=== PATIENT | male | born 1945 | race Caucasian/White ===

== ENCOUNTER → 2017-04-22 | Outpatient (CLI) | payer OTHER ==
[~2017-04-22] MED LIST: ASCO1CAP3 PO; ASPI1TAB48 PO; ATOR10TA88 PO; BEE1CAP PO; BEET ROOT PO; BSP/10 PO; BUSP5TAB59 PO; BUTTERBUR PO; CHOL1CHW10 PO; CIPR-255 PO; COEN1CAP17 PO; GARL400T4 PO; HYDR-5688 PO; LISI5TAB PO; METO1TAB66 PO; MISC1CAP60 PO; MULT-506 PO; NEBI10TA2 PO; OMEGCAP2 PO; OMEP40CA PO; OXYBUTYNIN PO; REDCAP2 PO; SERT1TAB71 PO; SILD100T PO; SOLI5TAB2 PO; TAMS0.4C59 PO; URX/10 PO; VITA1CAP5 PO; ZLF/100 PO; ZNTT/150 PO; [UNRECOGNIZED DRUG - OTHER] PO; cranberry PO
== END | disposition home or self-care (01) ==
LOC: C.LABSPEC 10:35
PROVIDERS: ATTEND Urology
DX: N39.0 Urinary tract infection, site not specified (principal)

== ENCOUNTER 2017-04-28 11:28 | Day surgery (SDC) | payer OTHER ==
[2017-04-23 14:23] VITALS: BMI 25.0
--- NOTE | 2017-04-23 15:01 | PAT Medication Instructions ---
Service Date Apr 23, 2017. Current Home Medication List Alfuzosin HCl (Alfuzosin HCl ER), 10 MG PO QPM Ascorbic Acid (Vitamin C), 500 MG PO BID Aspirin (Aspirin Low Dose), 81 MG PO HS Atorvastatin (Lipitor), 10 MG PO HS Bee Pollen (Bee Pollen), 550 MG PO BID Buspirone Hcl (Buspirone Hcl), 5 MG PO BID Cholecalciferol (Vitamin D3), 1,000 UNITS PO QPM PRN for PRN Coenzyme Q10 (Ubidecarenone) (Co Q 10), 200 MG PO BID Garlic-Calcium (Garlic), 3 TABS PO BID Lisinopril (Prinivil), 5 MG PO HS Misc Natural Products ([place]), 1 CAP PO BID Multivitamin (Multivitamin), 1 TAB PO QAM Nebivolol Hcl (Bystolic), 10 MG PO QAM [place]-3 Fatty Acids (Fish Oil), 1 CAP PO QPM Omeprazole (Prilosec), 40 MG PO QAM Ranitidine (Zantac), 150 MG PO HS Sertraline Hcl (Zoloft), 50 MG PO HS Sildenafil Citrate (Viagra), 100 MG PO PRN PRN for UD Tamsulosin Hcl (Flomax), 0.4 MG PO QAM Vitamin E (E400), 400 PO QPM [Beet Root], 1 TAB PO BID [[place]ries], 1 TAB PO BID [Oxybutynin], 5 MG PO DAILY [cranberry], 2 TABS PO BID Medication Instructions For Your Scheduled Surgery - Check with surgeon/copy machine operator for instructions: Aspirin (Aspirin Low Dose), 81 MG PO HS - Hold the following medications starting 04/23/17: [cranberry], 2 TABS PO BID [[place] Berries], 1 TAB PO BID Vitamin E (E400), 400 PO QPM [Beet Root], 1 TAB PO BID [place]-3 Fatty Acids (Fish Oil), 1 CAP PO QPM Misc Natural Products ([place]), 1 CAP PO BID Garlic-Calcium (Garlic), 3 TABS PO BID Coenzyme Q10 (Ubidecarenone) (Co Q 10), 200 MG PO BID Bee Pollen (Bee Pollen), 550 MG PO BID - Hold the following medications 24 hours prior to surgery: Lisinopril (Prinivil), 5 MG PO HS - Hold the following medications the morning of surgery: [Oxybutynin], 5 MG PO DAILY Tamsulosin Hcl (Flomax), 0.4 MG PO QAM Sildenafil Citrate (Viagra), 100 MG PO PRN PRN for UD Multivitamin (Multivitamin), 1 TAB PO QAM Cholecalciferol (Vitamin D3), 1,000 UNITS PO QPM PRN for PRN Ascorbic Acid (Vitamin C), 500 MG PO BID - Take the following medications the morning of surgery with a sip of water: Omeprazole (Prilosec), 40 MG PO QAM Nebivolol Hcl (Bystolic), 10 MG PO QAM Buspirone Hcl (Buspirone Hcl), 5 MG PO BID - Take the following medications as scheduled the night before surgery: Sildenafil Citrate (Viagra), 100 MG PO PRN PRN for UD (if needed) Ranitidine (Zantac), 150 MG PO HS Sertraline Hcl (Zoloft), 50 MG PO HS Buspirone Hcl (Buspirone Hcl), 5 MG PO BID Atorvastatin (Lipitor), 10 MG PO HS Ascorbic Acid (Vitamin C), 500 MG PO BID Alfuzosin HCl (Alfuzosin HCl ER), 10 MG PO QPM If you have any questions please call us at [phone] or [phone] or [phone]
--- NOTE | 2017-04-23 15:34 | DIAGNOSTIC IMAGING REPORT ---
CHEST PREADMISSION(PA/LAT) CLINICAL HISTORY: Preoperative evaluation. COMPARISON STUDY: Chest radiograph August 01, 2013. FINDINGS: Lung volumes are normal. No pneumothorax or pleural effusion is present. Pulmonary vascularity is normal. Cardiomediastinal silhouette is normal. There is no consolidation. Appearance of the chest is unchanged. Chronic deformity of the anterior right first and second ribs is incidentally noted. IMPRESSION: No acute cardiopulmonary findings. Electronically signed by: Nic Posada M.D. 04/23/2017 3:33 PM Dictated Date/Time: 04/23/2017 3:32 PM
[~2017-04-28] VITALS: Ht 177.8 cm; Wt 80.1 kg
[~2017-04-28 11:28] MED LIST changes: -BUSP5TAB59 PO; -CIPR-255 PO; +CIPROFLOXACIN / D5W 400 MG IV SCH; -HYDR-5688 PO; +LACTATED RINGER'S 1000ML 1,000 ML IV SCH; -METO1TAB66 PO; -REDCAP2 PO; -SERT1TAB71 PO; -SOLI5TAB2 PO; -TAMS0.4C59 PO
[2017-04-28 12:17] VITALS: BP 165/87; PULSE 60; TEMP 37.1; O2SAT 98; Ht 177.8 cm; Wt 80.1 kg
[2017-04-28] MEDS ORDERED: FENTANYL CITRATE INJ 50 MCG/1 ML 2 ML VIAL ONE (12:44)
[2017-04-28] MEDS ORDERED: LIDOCAINE HCL 2% 2 ML VIAL (20MG/ML) ONE (12:44)
[2017-04-28] MEDS ORDERED: PROPOFOL IV EMULSION 10 MG/ML 20 ML VIAL IV ONE (12:44)
[2017-04-28] MEDS ORDERED: ONDANSETRON INJ 2 MG/ML 2 ML VIAL ONE (12:44)
[2017-04-28] MEDS ORDERED: MIDAZOLAM HCL 1 MG/ML 2ML VIAL ONE (12:44)
[2017-04-28] MEDS ORDERED: FENTANYL CITRATE INJ 50 MCG/1 ML 2 ML VIAL IV PRN (12:45)
[2017-04-28] MEDS ORDERED: HYDROmorphone INJ 2 MG/ML SYR/VIAL IV PRN (12:45)
[2017-04-28] MEDS ORDERED: ATROPINE SULFATE 0.1 MG/ML 5ML SYR IV PRN (12:45)
[2017-04-28] MEDS ORDERED: EpHEDrine SULFATE INJ 50 MG/ML AMP IV PRN (12:45)
[2017-04-28] MEDS ORDERED: PHENYLEPHRINE 100MCG/ML 5ML SYR IV PRN (12:45)
[2017-04-28] MEDS ORDERED: ONDANSETRON INJ 2 MG/ML 2 ML VIAL IV PRN (12:45)
[2017-04-28] MEDS ORDERED: MEPERIDINE HCL 25 MG/ML CARP IV PRN (12:45)
[2017-04-28] MEDS ORDERED: NALOXONE HCL 0.4 MG/1 ML VIAL/CARP IV PRN (12:45)
[2017-04-28] MEDS ORDERED: LABETALOL HCL IV 5 MG/ML 20ML IV PRN (12:45)
[2017-04-28] MEDS ORDERED: FLUMAZENIL 0.1 MG/1 ML 10 ML VIAL IV PRN (12:45)
--- NOTE | 2017-04-28 13:06 | History & Physical Bridge Note ---
H&P Re-Evaluation Bridge Note: I have examined the patient, reviewed the History & Physical and in the interval since the performance of the History & Physical I have noted the following changes of clinical significance: No changes noted
[2017-04-28] MEDS ORDERED: HYDR-5688 PO (13:09)
[2017-04-28] MEDS ORDERED: CIPR-255 PO (13:09)
--- NOTE | 2017-04-28 13:11 | Discharge Instructions ---
Discharge Instructions Date of Service Apr 28, 2017. Admission Reason for Admission: Benign Prostatic Hyperplasia Discharge Discharge Diagnosis / Problem: BPH Discharge Goals Goal(s): Decrease discomfort, Improve function, Increase independence, Improve disease control, Prevent Disease Progression Activity Recommendations Activity Limitations: resume your previous activity Lifting Limitations: none Exercise/Sports Limitations: none May Resume Sexual Activity: when tolerated Shower/Bathe: no limitations Driving or Machine Use: resume 1 day after discharge . Instructions / Follow-Up Instructions / Follow-Up Please keep your previously scheduled follow up appointment with Dr. Silverio Discharge Diet Recommended Diet: Regular Diet Pending Studies Studies pending at discharge: no Medical Emergencies . Who to Call and When: Medical Emergencies: If at any time you feel your situation is an emergency, please call 911 immediately. . Non-Emergent Contact Non-Emergency issues call your: Urologist Call Non-Emergent contact if: you have a fever, temperature is above 101.5, your pain is not controlled, your pain is worsening . . "Provider Documentation" section prepared by Kenn Felder. . VTE Core Measure Inpt VTE Proph given/why not?: Treatment not indicated [place] Drug Monitoring Program Search Results: patient reviewed within database, no issues identified Drug Monitoring Findings: one prior prescription this summer - uncertain indication
[2017-04-28] MEDS ORDERED: SODIUM CHLORIDE 0.9% 1000ML 1,000 ML IV SCH (13:42)
--- NOTE | 2017-04-28 13:42 | [facility] Operative Report ---
Operative Report Operative Date Apr 28, 2017. Pre-Operative Diagnosis Benign prostatic hyperplasia with obstruction lower urinary tract symptoms Post-Operative Diagnosis Benign prostatic hyperplasia with obstruction lower urinary tract symptoms Procedure(s) Performed Cystoscopy, Urolift Surgeon Dr. Eyal Silverio Commercial Lender Surgeon(s) None Estimated Blood Loss 0cc Findings bilobar hypertrophy with a slightly elevated bladder neck Specimens None Drains none Anesthesia MAC Complication(s) None Disposition Recovery Room / PACU (stable) Indications BPH with voiding dysfunction Description of Procedure Patient was identified in the preoperative holding area, appropriate informed consents were reviewed and completed and the patient was transported to the operating suite. Upon arrival he received appropriate preoperative antibiotics in the form of ciprofloxacin. Adequate sedation was achieved, and he was placed in dorsal lithotomy position where he was sterilely prepped and draped in standard fashion. I began the case by passing a cystoscope with 0 lens. Inspection of the urethra revealed healthy-appearing mucosa without evidence of strictures. Prostate was inspected, and he was noted to have lateral lobe hypertrophy. Full inspection of the bladder was carried out. There were no tumors, stones, or other abnormalities. I then exchanged visual obturator for the first uro-lift device. The first suture was deployed on the right side of the prostate approximately 1 cm in from the bladder neck. A mirror image suture was then deployed on the left. A third suture was placed adjacent to the verumontanum on the right. A fourth suture was placed in a mirror image of this location on the left. There was excellent hemostasis. I reinspected the bladder and prostate and confirmed an excellent anterior channel. I attest to the content of the Intraoperative Record and any orders documented therein. Any exceptions are noted below.
[2017-04-28] MEDS ORDERED: OXYCODONE/ACETAMINOPHEN 5-325 TAB PO PRN (13:45)
[2017-04-28 13:47] VITALS: BP 142/82; PULSE 60; TEMP 36.4; O2SAT 96
[2017-04-28] MEDS: OXYCODONE/ACETAMINOPHEN 5-325 TAB PO PRN ×2 (14:10→15:29)
[2017-04-28] MEDS ORDERED: KETOROLAC TROMETHAMINE 30 MG/ML VIAL ONE (14:15)
[2017-04-28] MEDS ORDERED: KETOROLAC TROMETHAMINE 30 MG/ML VIAL IV STA (14:15)
--- NOTE | 2017-04-28 14:16 | Anesthesiology Progress Note ---
Anesthesia Post Op Note Date & Time Apr 28, 2017 at 14:16 Vital Signs Pain Intensity: 3 Vital Signs Past 12 Hours Date Time Temp Pulse Resp B/P (MAP) Pulse Ox O2 Delivery O2 Flow Rate FiO2 04/28/17 12:17 37.1 60 20 165/87 (113) 98 Room Air Notes Mental Status: alert / awake / arousable, participated in evaluation Pt Amnestic to Procedure: Yes Nausea / Vomiting: adequately controlled Pain: adequately controlled, improving with treatment Airway Patency, RR, SpO2: stable & adequate BP & HR: stable & adequate Hydration State: stable & adequate Anesthetic Complications: no major complications apparent
[2017-04-28 14:20] VITALS: BP 193/87; PULSE 55; O2SAT 100
[2017-04-28] MEDS ORDERED: HydrALAZINE HCL 20 MG/ML VIAL ONE (14:44)
[2017-04-28] MEDS ORDERED: NURSING VERBAL MED ORDER ONE (14:45)
[2017-04-28 14:55] VITALS: BP 189/97; PULSE 51; TEMP 36.4; O2SAT 100
[2017-04-28 15:50] VITALS: BP 170/83; PULSE 62; TEMP 36.5; O2SAT 99
[2017-04-28 16:20] VITALS: BP 156/89
== END 2017-04-28 16:40 | disposition home or self-care (01) ==
LOC: C.ACU 11:28
PROVIDERS: ATTEND Urology
DX: N40.1 Benign prostatic hyperplasia with lower urinary tract symptoms (principal); N13.8 Other obstructive and reflux uropathy; N32.89 Other specified disorders of bladder; N28.1 Cyst of kidney, acquired; R35.1 Nocturia; I10 Essential (primary) hypertension; N52.9 Male erectile dysfunction, unspecified

== ENCOUNTER → 2017-05-04 | Outpatient (CLI) | payer OTHER ==
[~2017-05-04] MED LIST changes: +CIPR-255 PO; -CIPROFLOXACIN / D5W 400 MG IV SCH; +HYDR-5688 PO; -LACTATED RINGER'S 1000ML 1,000 ML IV SCH; -OXYBUTYNIN PO
== END | disposition home or self-care (01) ==
LOC: C.LABSPEC 17:28
PROVIDERS: ATTEND Nurse Practitioner Adult Health
DX: R35.0 Frequency of micturition (principal); R39.15 Urgency of urination

== ENCOUNTER 2019-05-09 07:11 | Observation (INO) ==
--- NOTE | 2019-05-02 10:13 | PAT Medication Instructions ---
Medication Instructions Date of Service May 02, 2019 Home Medications Beet Root 1 dose PO BID Cranberry 1 dose PO BID Garlic 1 dose PO BID Prostate Health Supplement 2 dose PO DAILY Turmeric 1 dose PO BID ascorbic acid (vitamin C) [Vitamin C] 500 mg PO BID atorvastatin 10 mg PO Q2D buspirone 10 mg PO BID butterbur root extract 75 mg PO DAILY coenzyme Q10 [CoQ-10] 300 mg PO DAILY hawthorn 500 mg PO BID lactobacillus combination no.4 [Probiotic] 3,000 mmu cells PO DAILY lisinopril 5 mg PO UD Multivitamin 50 Plus] 1 tab PO DAILY nebivolol [Bystolic] 5 mg PO QAM omega 0-nbr-ctj-fish oil [Fish Oil] 1 cap PO DAILY omeprazole 40 mg PO QAM ranitidine HCl 150 mg PO HS sertraline 100 mg PO HS vitamin E 400 unit PO DAILY STOP taking 2 weeks before surgery (or as soon as possible if surgery is within 2 weeks) Beet Root 1 dose PO BID Cranberry 1 dose PO BID Garlic 1 dose PO BID Prostate Health Supplement 2 dose PO DAILY Turmeric 1 dose PO BID butterbur root extract 75 mg PO DAILY coenzyme Q10 [CoQ-10] 300 mg PO DAILY hawthorn 500 mg PO BID omega 3-jwh-omc-fish oil [Fish Oil] 1 cap PO DAILY vitamin E 400 unit PO DAILY DO NOT take the morning of surgery ascorbic acid (vitamin C) [Vitamin C] 500 mg PO BID lisinopril 5 mg PO UD Multivitamin 50 Plus] 1 tab PO DAILY Take morning of surgery With a small sip of water, OTHERWISE NOTHING TO EAT OR DRINK AFTER MIDNIGHT: Beet Root 1 dose PO BID Cranberry 1 dose PO BID Garlic 1 dose PO BID Prostate Health Supplement 2 dose PO DAILY Turmeric 1 dose PO BID ascorbic acid (vitamin C) [Vitamin C] 500 mg PO BID atorvastatin 10 mg PO Q2D buspirone 10 mg PO BID nebivolol [Bystolic] 5 mg PO QAM omeprazole 40 mg PO QAM Take evening before surgery ascorbic acid (vitamin C) [Vitamin C] 500 mg PO BID buspirone 10 mg PO BID ranitidine HCl 150 mg PO HS sertraline 100 mg PO HS Other Notes If you have any questions please call us at [phone] or [phone] or [phone] or [phone]
--- NOTE | 2019-05-02 15:37 | Anesthesiology Consultation ---
Date of Service May 02, 2019 Assessment & Plan (1) Encounter for pre-operative examination: Cardiology: 02/22/19: Hx frequent PVC's (s/p PVC ablation 2014) and resolved nonischemic cardiomyopathy. "Stable from a CV standpoint." Continued on same regimen. F/U 1 year recommended. Chart Review Chart Review: Pending: Refer to Additional Notes / Consult section (pending preop testing (labs, EKG)) and Patient seen in Pre Admission Testing Teaching & Discussion Pre-Anesthesia Teaching/Discussion Notes: Instructed NPO after midnight before surgery,except medications with 15 cc of water. Medication instructions provided according to the PAT guidelines. History Surgery Operation Date: 05/09/19 07:15 Proposed Procedures p Transurethral Resection Prostate - Kenn Silverio MD s and Cystoscopy Laser Lithotripsy - Kenn Silverio MD Height/Weight Height: 5 ft 10 in Weight: 82.2 kg Allergies Allergy/AdvReac Type Severity Reaction Status Date / Time peach Allergy Unknown LIP Verified 05/02/19 15:37 SWELLING FUZZY FRUITS Allergy Unknown LIP Uncoded 05/02/19 15:37 SWELLING Medications Home Medications Medication Instructions Recorded Confirmed Last Taken Beet Root 1 dose PO BID 04/22/19 05/02/19 Unknown Cranberry 1 dose PO BID 04/22/19 05/02/19 Unknown Garlic 1 dose PO BID 04/22/19 05/02/19 Unknown Prostate Health Supplement 2 dose PO DAILY 04/22/19 05/02/19 Unknown Turmeric 1 dose PO BID 04/22/19 05/02/19 Unknown ascorbic acid (vitamin C) [Vitamin 500 mg PO BID 04/22/19 05/02/19 Unknown C] atorvastatin 10 mg PO Q2D 04/22/19 05/02/19 Unknown buspirone 10 mg PO BID 04/22/19 05/02/19 Unknown butterbur root extract 75 mg PO DAILY 04/22/19 05/02/19 Unknown coenzyme Q10 [CoQ-10] 300 mg PO DAILY 04/22/19 05/02/19 Unknown hawthorn 500 mg PO BID 04/22/19 05/02/19 Unknown lactobacillus combination no.4 3,000 mmu cells PO DAILY 04/22/19 05/02/19 Unknown [Probiotic] lisinopril 5 mg PO UD 04/22/19 05/02/19 Unknown wrruoulbghvr-jieukwgk-fakyww 1 tab PO DAILY 04/22/19 05/02/19 Unknown [Multivitamin 50 Plus] nebivolol [Bystolic] 5 mg PO QAM 04/22/19 05/02/19 Unknown omega 0-ioo-lwp-fish oil [Fish Oil] 1 cap PO DAILY 04/22/19 05/02/19 Unknown omeprazole 40 mg PO QAM 04/22/19 05/02/19 Unknown ranitidine HCl 150 mg PO HS 04/22/19 05/02/19 Unknown sertraline 100 mg PO HS 04/22/19 05/02/19 Unknown vitamin E 400 unit PO DAILY 04/22/19 05/02/19 Unknown Past Medical History Medical History Acid reflux controlled Anxiety Bladder stone Borderline high cholesterol Enlarged prostate History of cardiomyopathy Hx nonischemic cardiomyopathy "resolved" per 02/2019 ECHO/cardiology Hypertension PVC (premature ventricular contraction) Hx frequent PVC's s/p PVC ablation (2014) Sciatica LLE > RLE radiculopathy Thrombocytopenia PCP monitoring (plts 84 on 03/26/19 labs); no definitive etiology at this point Exercise / Class Metabolic Activity II 4-5 Yardwork/Stairs/Walk up hill Past Family History Family History Brother Family history of diabetes mellitus (DM) Past Surgical History Surgical History History of back surgery L4-5 (NO HARDWARE) History of cardiac radiofrequency ablation History of colonoscopy History of foot surgery RIGHT BUNIONECTOMY History of hernia surgery History of repair of right rotator cuff History of urologic surgery UROLIFT Past Anesthesia History No Hx of Anesthesia Complications and No Family Hx of Anesthesia Complications History of PONV No Hx of PONV and No Hx of Motion Sickness Social History Smoking Status: Never smoker Do You Dip or Chew Tobacco: No Hx Alcohol Use: Yes Alcohol type: wine alcohol intake frequency: holidays/special occasions only Hx Substance Use: No substance use type: does not use Review of Systems Reflux controlled. Patient denies chest pain, shortness of breath, dyspnea on exertion, cough, wheezing, palpitations. Physical Exam Vital Signs VITALS BP 164/91 P 65 TEMP 98.8 SP02 99%RA RESP 16 PHYSICAL Full neck and c-spine range of motion. Full TMJ range of motion. TMD 3 finger breaths Mallampati Score 2 Dentition: intact, crowns on molars Lungs: clear throughout to auscultation Cardiac: regular rate and rhythm, no murmurs noted Spine: normal Carotid arteries: negative bruit Extremities: no edema Testing Laboratory Results 05/02/19 16:11 05/02/19 16:11 Echocardiogram Date: 02/22/19 EF 55%. No RWMA. No significant valvular disease. Stress Test Date: 08/24/13 Type: nuclear Small size, mild intensity inferoseptal defect consistent with diaphragmatic attenuation. Moderate septal HK with normal wall motion of all over LV segments. LVEF 50%. Mild LVE. No stress induced perfusion defects. Negative stress EKG.
[2019-05-02 16:40] LABS: Basophils # (auto) 0.03 K/uL (0-0.2); Basophils % (auto) 0.3 %; Eosinophils # (auto) 0.14 K/uL (0-0.5); Eosinophils % (auto) 1.6 %; Hematocrit (blood only) 40.4 % (42-52); Hemoglobin 13.7 g/dL (14.0-18.0); Immature Granulocytes # (auto) 0.02 K/uL (0.00-0.02); Immature Granulocytes % (auto) 0.2 %; Lymphocytes # (auto) 2.01 K/uL (1.2-3.4); Lymphocytes % (auto) 22.6 %; Mean Corpuscular Hgb Conc 33.9 g/dL (32-36); Mean Corpuscular Volume 91.4 fL (80-100); Monocytes # (auto) 0.91 K/uL (0.11-0.59); Monocytes % (auto) 10.2 %; Neutrophils % (auto) 65.1 %; Platelet Count 102 K/uL (130-400); RDW Coefficient of Variation 12.9 % (11.5-14.5); RDW Standard Deviation 43.5 fL (36.4-46.3); Red Blood Count 4.42 M/uL (4.7-6.1); White Blood Count 8.91 K/uL (4.8-10.8)
[2019-05-02 16:46] LABS: BUN Creatinine Ratio 15.1 (10-20); Calcium 8.7 mg/dl (8.5-10.1); Creatinine Clr Calc Pharmacy 69.3 ml/min; Est GFR (African American) 86.3; Est GFR (Non-African American) 74.5; Potassium 3.8 mmol/L (3.5-5.1)
[~2019-05-09 07:11] MED LIST changes: -ASCO1CAP3 PO; -ASPI1TAB48 PO; -ATOR10TA88 PO; -BEE1CAP PO; -BEET ROOT PO; -BSP/10 PO; -BUTTERBUR PO; -CHOL1CHW10 PO; -CIPR-255 PO; +CIPROFLOXACIN 400 MG/200 ML BAG IV SCH; -COEN1CAP17 PO; -GARL400T4 PO; -HYDR-5688 PO; -LISI5TAB PO; +LR 15ML/HR IV SCH; -MISC1CAP60 PO; -MULT-506 PO; -NEBI10TA2 PO; -OMEGCAP2 PO; -OMEP40CA PO; -SILD100T PO; -URX/10 PO; -VITA1CAP5 PO; -ZLF/100 PO; -ZNTT/150 PO; -[UNRECOGNIZED DRUG - OTHER] PO; -cranberry PO
[2019-05-09] MEDS ORDERED: MIDAZOLAM HCL 1 MG/ML 2ML VIAL ONE (07:47)
[2019-05-09] MEDS ORDERED: fentaNYL citrate 100 MCG/2 ML VIAL ONE (07:48)
[2019-05-09] MEDS ORDERED: PROPOFOL IV EMULSION 10 MG/ML 20 ML VIAL IV ONE (07:49)
[2019-05-09] MEDS ORDERED: ONDANSETRON INJ 2 MG/ML 2 ML VIAL ONE (07:49)
[2019-05-09] MEDS ORDERED: LIDOCAINE HCL 2% 2 ML VIAL/AMP(20MG/ML) INFIL ONE (07:49)
[2019-05-09] MEDS ORDERED: PROMETHAZINE HCL 12.5 MG in SODIUM CHLORIDE 0.9% 50 ML IV PRN (08:00)
[2019-05-09] MEDS ORDERED: METOCLOPRAMIDE HCL INJ 5 MG/ML 2 ML VIAL IV PRN (08:00)
[2019-05-09] MEDS ORDERED: HYDROmorphone INJ 2 MG/ML SYR/VIAL IV PRN (08:00)
[2019-05-09] MEDS ORDERED: ATROPINE SULFATE 0.1 MG/ML 10ML SYR IV PRN (08:00)
[2019-05-09] MEDS ORDERED: ONDANSETRON INJ 2 MG/ML 2 ML VIAL IV PRN ×2 (08:00→11:27)
[2019-05-09] MEDS ORDERED: ePHEDrine sulfate 50 MG/ML AMP IV PRN (08:00)
--- NOTE | 2019-05-09 08:05 | History & Physical Bridge Note ---
Date of Service May 09, 2019 History & Physical Bridge Note I have examined the patient, reviewed the History & Physical and in the interval since the performance of the History & Physical I have noted the following changes of clinical significance: no changes noted
[2019-05-09] MEDS ORDERED: IOTHALAMATE MEGLUMINE II 17.2% 250 ML VIAL ONE (08:16)
[2019-05-09] MEDS ORDERED: ePHEDrine sulfate 50 MG/ML SYR ONE (08:47)
--- NOTE | 2019-05-09 09:08 | Operative Report ---
Post Operative Report Pre & Post Diagnosis Operation Date: 05/09/19 08:35 Pre-Op Diagnosis: Benign localized prostatic hyperplasia with lower urinary tract symptoms Post-Op Diagnosis: Benign localized prostatic hyperplasia with lower urinary tract symptoms Procedure Operation Date: 05/09/19 08:35 Actual Procedures p Transurethral Resection Prostate, Cystoscopy, with extraction of bladder stone - Kenn Silverio MD Surgeon Eyal Silverio MD Screen Making Technician None Estimated Blood Loss 5 Findings Consistent with Post-Op Diagnosis Specimens Bladder calculi for chemical analysis Description of Procedure The patient was identified in the preopertive holding area, appropriate informed consents were reviewed and completed and the patient was transferred to the operative suite. Upon arrival, appropriate antibiotics and anesthesia were administered and the patient was placed in dorsal lithotomy position and prepped and draped in sterile fashion. To begin the case I passed a 22 [place] cystoscope with 30 degree lens. Inspection revealed a wide caliber bulbar urethral stricture which was easily navigable. His prostate was noticeably enlarged with a prior uro-lift completed an appropriate opening of an anterior channel. That said, he continues to have an intravesical median lobe which appears to be as cause of obstruction. It was difficult to evaluate the area immediately posterior to the median lobe and I was unable to visualize the bladder stone which was previously seen on in office flexible cystoscopy. Given the lack of visualization of the stone, I elected to treat his median lobe first. I passed a resectoscope and button electrode. I resected the median lobe flush with the bladder neck and posterior bladder wall. This greatly improved the appearance of the prostatic fossa. I used care to avoid over treating the bladder neck and the hope of preserving ejaculatory function. I could then easily inspect the full bladder and I found the calculus in the right dependent portion of the bladder. I was able to fragment this with my scope and irrigate the chips out of the bladder. I did not require a laser to treat the stone. After obtaining meticulous hemostasis, a 22 [place] Pacheco catheter was inserted without difficulty and the bladder drained. He was subsequently extubated and taken to the PACU in stable condition. There were no complications. I attest to the content of the Intraoperative Record and any orders documented therein. Any exceptions are noted below.
[2019-05-09] MEDS ORDERED: LABETALOL HCL IV 5 MG/ML 20ML IV ONE (09:31)
[2019-05-09] MEDS: fentaNYL citrate 100 MCG/2 ML VIAL IV PRN ×2 (09:51→09:58)
[2019-05-09] MEDS ORDERED: LABETALOL HCL IV 5 MG/ML 20ML IV PRN (10:15)
--- NOTE | 2019-05-09 10:55 | Anesthesiology Progress Note ---
Date of Service May 09, 2019 Anesthesia Post Procedure Vital Signs Vital Signs: Temp Pulse Pulse Pulse Resp BP BP 05/09/19 10:47 36.8 C 05/09/19 10:40 65 14 178/96 H 05/09/19 10:36 64 14 05/09/19 10:35 65 14 05/09/19 10:32 67 16 186/97 H 05/09/19 10:31 65 12 05/09/19 10:30 65 14 05/09/19 10:29 67 16 182/95 H 05/09/19 10:25 63 11 L 173/97 H 05/09/19 10:21 64 7 L 05/09/19 10:20 66 15 180/104 H 05/09/19 10:16 72 16 175/100 H 05/09/19 10:15 72 14 05/09/19 10:10 71 13 147/94 H 05/09/19 10:06 72 12 05/09/19 10:05 65 14 174/97 H 05/09/19 10:01 68 14 05/09/19 10:00 68 17 162/99 H 05/09/19 09:56 68 14 05/09/19 09:55 67 13 167/100 H 05/09/19 09:50 66 14 186/99 H 05/09/19 09:46 70 15 05/09/19 09:45 70 14 173/102 H 05/09/19 09:41 72 13 05/09/19 09:40 68 14 170/100 H 05/09/19 09:36 72 14 05/09/19 09:35 68 14 176/119 H 05/09/19 09:31 77 14 05/09/19 09:30 73 14 173/106 H 05/09/19 09:29 76 10 L 173/100 H 05/09/19 09:26 77 14 05/09/19 09:25 80 14 160/108 H 05/09/19 09:20 80 14 155/94 H 05/09/19 09:18 80 14 05/09/19 09:17 36.0 C L 85 84 14 176/104 H 176/104 H 05/09/19 07:40 187/108 H 05/09/19 07:35 37.0 C 68 18 183/107 H Pulse Ox 05/09/19 10:47 96 05/09/19 10:40 94 05/09/19 10:36 97 05/09/19 10:35 94 05/09/19 10:32 98 05/09/19 10:31 99 05/09/19 10:30 99 05/09/19 10:29 98 05/09/19 10:25 99 05/09/19 10:21 98 05/09/19 10:20 98 05/09/19 10:16 100 05/09/19 10:15 99 05/09/19 10:10 99 05/09/19 10:06 98 05/09/19 10:05 94 05/09/19 10:01 98 05/09/19 10:00 97 05/09/19 09:56 98 05/09/19 09:55 92 05/09/19 09:50 98 05/09/19 09:46 98 05/09/19 09:45 94 05/09/19 09:41 98 05/09/19 09:40 100 05/09/19 09:36 100 05/09/19 09:35 100 05/09/19 09:31 100 05/09/19 09:30 100 05/09/19 09:29 98 05/09/19 09:26 100 05/09/19 09:25 100 05/09/19 09:20 100 05/09/19 09:18 100 05/09/19 09:17 99 05/09/19 07:40 05/09/19 07:35 97 Pain Intensity Back: Pain Intensity: 4 Penis: Pain Intensity: 4 Transfer of Care Handoff Completed per policy Notes Mental Status: alert / awake / arousable and participated in evaluation Patient Amnestic to Procedure: Yes Nausea / Vomiting: adequately controlled Pain: adequately controlled Airway Patency, RR, SpO2: stable & adequate BP & HR: stable & adequate Hydration State: stable & adequate Anesthetic Complications: no major complications apparent
[2019-05-09] MEDS ORDERED: BELLADONNA/OPIUM SUPP 60 MG SUPP PR PRN (11:27)
[2019-05-09] MEDS ORDERED: ACETAMINOPHEN 1,000 MG/100 ML VIAL IV PRN (11:27)
[2019-05-09] MEDS ORDERED: MoRPHine SULFATE 2 MG/ML CARP IV PRN (11:27)
[2019-05-09] MEDS ORDERED: OXYCODONE/ACETAMINOPHEN 5mg/325mg TAB PO PRN (11:27)
[2019-05-09] MEDS ORDERED: MoRPHine SULFATE 4 MG/ML 1 ML CARP\\VIAL IV PRN (11:27)
[2019-05-09] MEDS ORDERED: ZOLPIDEM TARTRATE 5 MG TAB PO PRN (11:27)
[2019-05-09] MEDS ORDERED: OXYCODONE HCL IR 5 MG TAB (IMMEDIATE RELEASE) ONE (12:16)
[2019-05-09] MEDS: OXYCODONE HCL IR 5 MG TAB (IMMEDIATE RELEASE) PO PRN ×2 (12:18→16:13)
[2019-05-09] MEDS: LISINOPRIL 5 MG TAB PO SCH (12:46)
[2019-05-09] MEDS: LACTATED RINGER'S 1,000 ML IV SCH (12:47)
[2019-05-09] MEDS ORDERED: ATORVASTATIN 10 MG TAB PO SCH (13:00)
[2019-05-09] MEDS: DOCUSATE SODIUM 100 MG CAP PO SCH (20:06)
[2019-05-09] MEDS: CIPROFLOXACIN 400 MG/200 ML BAG IV SCH (20:07)
[2019-05-09] MEDS: ASCORBIC ACID 500 MG TAB PO SCH (20:07)
[2019-05-09] MEDS ORDERED: SERTRALINE HCL 100 MG TABLET PO SCH (21:00)
[2019-05-10] MEDS: LACTATED RINGER'S 1,000 ML IV SCH (01:23)
[2019-05-10] MEDS: OXYCODONE HCL IR 5 MG TAB (IMMEDIATE RELEASE) PO PRN ×2 (03:28→07:46)
[2019-05-10 07:30] LABS: Hematocrit (blood only) 38.7 % (42-52); Hemoglobin 12.7 g/dL (14.0-18.0); Mean Corpuscular Hemoglobin 30.3 pg (25-34); Mean Corpuscular Hgb Conc 32.8 g/dL (32-36); Mean Corpuscular Volume 92.4 fL (80-100); RDW Coefficient of Variation 13.1 % (11.5-14.5); RDW Standard Deviation 43.8 fL (36.4-46.3); Red Blood Count 4.19 M/uL (4.7-6.1); White Blood Count 6.71 K/uL (4.8-10.8)
[2019-05-10] MEDS: LISINOPRIL 5 MG TAB PO SCH (07:47)
[2019-05-10] MEDS: ASCORBIC ACID 500 MG TAB PO SCH (07:47)
[2019-05-10] MEDS: DOCUSATE SODIUM 100 MG CAP PO SCH (07:48)
[2019-05-10] MEDS: CIPROFLOXACIN 400 MG/200 ML BAG IV SCH (07:50)
[2019-05-10 07:54] LABS: BUN Creatinine Ratio 11.9 (10-20); Calcium 8.2 mg/dl (8.5-10.1); Creatinine Clr Calc Pharmacy 71.4 ml/min; Est GFR (African American) 89.5; Est GFR (Non-African American) 77.3; Potassium 3.7 mmol/L (3.5-5.1)
[2019-05-10 07:56] LABS: Basophils # (auto) 0.03 K/uL (0-0.2); Basophils % (auto) 0.4 %; Eosinophils # (auto) 0.17 K/uL (0-0.5); Eosinophils % (auto) 2.5 %; Immature Granulocytes # (auto) 0.01 K/uL (0.00-0.02); Immature Granulocytes % (auto) 0.1 %; Lymphocytes # (auto) 1.84 K/uL (1.2-3.4); Lymphocytes % (auto) 27.4 %; Mean Platelet Volume 9.5 fL (7.4-10.4); Monocytes # (auto) 0.64 K/uL (0.11-0.59); Monocytes % (auto) 9.5 %; Neutrophils # (auto) 4.02 K/uL (1.4-6.5); Neutrophils % (auto) 60.1 %; Platelet Count 94 K/uL (130-400); Platelet Estimate Decreased (Normal)
[2019-05-10] MEDS ORDERED: NEBIVOLOL HCL 5 MG TAB PO SCH (09:00)
[2019-05-10] MEDS ORDERED: NON-FORMULARY PATIENT'S OWN MED PO SCH (09:00)
[2019-05-10] MEDS ORDERED: TOCOPHERYL, DL-ALPHA 400 UNITS CAP PO SCH (09:00)
[2019-05-10] MEDS ORDERED: CEROVITE ADV FORMULA TAB PO SCH (09:00)
[2019-05-10] MEDS ORDERED: LACTOBACILLUS ACIDOPHILUS (FLORANEX) TAB PO SCH (09:00)
[2019-05-10] MEDS ORDERED: PANTOprazole 40 MG TAB PO SCH (09:00)
--- NOTE | 2019-05-10 09:01 | Anesthesiology Progress Note ---
Date of Service May 10, 2019 Anesthesia Post Procedure Vital Signs Vital Signs: Temp Pulse Pulse Pulse Resp BP BP 05/10/19 07:20 36.5 C 67 17 05/10/19 06:05 166/89 H 05/10/19 03:09 36.9 C 65 16 166/92 H 05/09/19 23:27 36.8 C 72 16 124/78 05/09/19 20:19 36.8 C 71 12 135/80 05/09/19 15:14 36.7 C 65 18 143/83 H 05/09/19 13:59 66 18 152/81 H 05/09/19 13:00 36.5 C 68 16 141/85 H 05/09/19 12:00 67 16 178/97 H 05/09/19 11:30 65 20 174/94 H 05/09/19 10:47 36.8 C 05/09/19 10:40 65 14 178/96 H 05/09/19 10:36 64 14 05/09/19 10:35 65 14 05/09/19 10:32 67 16 186/97 H 05/09/19 10:31 65 12 05/09/19 10:30 65 14 05/09/19 10:29 67 16 182/95 H 05/09/19 10:25 63 11 L 173/97 H 05/09/19 10:21 64 7 L 05/09/19 10:20 66 15 180/104 H 05/09/19 10:16 72 16 175/100 H 05/09/19 10:15 72 14 05/09/19 10:10 71 13 147/94 H 05/09/19 10:06 72 12 05/09/19 10:05 65 14 174/97 H 05/09/19 10:01 68 14 05/09/19 10:00 68 17 162/99 H 05/09/19 09:56 68 14 05/09/19 09:55 67 13 167/100 H 05/09/19 09:50 66 14 186/99 H 05/09/19 09:46 70 15 05/09/19 09:45 70 14 173/102 H 05/09/19 09:41 72 13 05/09/19 09:40 68 14 170/100 H 05/09/19 09:36 72 14 05/09/19 09:35 68 14 176/119 H 09/23/19 09:31 77 14 05/09/19 09:30 73 14 173/106 H 05/09/19 09:29 76 10 L 173/100 H 05/09/19 09:26 77 14 05/09/19 09:25 80 14 160/108 H 05/09/19 09:20 80 14 155/94 H 05/09/19 09:18 80 14 05/09/19 09:17 36.0 C L 85 84 14 176/104 H 176/104 H BP Pulse Ox 05/10/19 07:20 170/94 H 97 05/10/19 06:05 05/10/19 03:09 97 05/09/19 23:27 96 05/09/19 20:19 97 05/09/19 15:14 96 05/09/19 13:59 96 05/09/19 13:00 97 05/09/19 12:00 95 05/09/19 11:30 97 05/09/19 10:47 96 05/09/19 10:40 94 05/09/19 10:36 97 05/09/19 10:35 94 05/09/19 10:32 98 05/09/19 10:31 99 05/09/19 10:30 99 05/09/19 10:29 98 05/09/19 10:25 99 05/09/19 10:21 98 05/09/19 10:20 98 05/09/19 10:16 100 05/09/19 10:15 99 05/09/19 10:10 99 05/09/19 10:06 98 05/09/19 10:05 94 05/09/19 10:01 98 05/09/19 10:00 97 05/09/19 09:56 98 05/09/19 09:55 92 05/09/19 09:50 98 05/09/19 09:46 98 05/09/19 09:45 94 05/09/19 09:41 98 05/09/19 09:40 100 05/09/19 09:36 100 05/09/19 09:35 100 05/09/19 09:31 100 05/09/19 09:30 100 05/09/19 09:29 98 05/09/19 09:26 100 05/09/19 09:25 100 05/09/19 09:20 100 05/09/19 09:18 100 05/09/19 09:17 99 Pain Intensity Back: Pain Intensity: 4 Penis: Pain Intensity: 0 Notes Mental Status: alert / awake / arousable Patient Amnestic to Procedure: Yes Nausea / Vomiting: adequately controlled Pain: improving with treatment Airway Patency, RR, SpO2: stable & adequate BP & HR: stable & adequate Hydration State: stable & adequate Anesthetic Complications: no major complications apparent
--- NOTE | 2019-05-10 10:20 | Urology Progress Note ---
Date of Service May 10, 2019 Assessment & Plan (1) BPH loc w urin obs/LUTS: 73yo M s/p TURP and bladder stone extraction Pt was personally evaluated by Dr. Silverio earlier this AM, rechecked by myself at this time. Pt continues to do well, progressing as expected. Pacheco catheter being removed at this time, approx 10AM per patients request to keep it a little longer in the morning. Plan to discharge home pending spontaneous void with antibiotics and pain control. Expected clinical course reviewed. Pt verbalizes good understanding. Please see additional comments per my attending, as indicated. Agree with abovevoiding trial this morning, doing extremely well right nowDC home after void Subjective 73yo M POD #1 s/p cysto, TURP, bladder stone extraction Uneventful night Tolerating PO without difficulty. Pain controlled with PO medications. Urine draining clear yellow, no clots. Results & Data Vital Signs (Past 12 Hours) Vital Signs Temp Pulse Resp BP BP Pulse Ox 05/10/19 07:20 36.5 C 67 17 170/94 H 97 05/10/19 06:05 166/89 H 05/10/19 03:09 36.9 C 65 16 166/92 H 97 05/09/19 23:27 36.8 C 72 16 124/78 96
--- NOTE | 2019-05-10 14:42 | Discharge Summary ---
Date of Service May 10, 2019 Admission HPI Per Admitting Provider see preop H&P Principal Diagnosis BPH with LUTS Discharge Data Allergies Allergy/AdvReac Type Severity Reaction Status Date / Time peach Allergy Unknown LIP Verified 05/09/19 07:37 SWELLING FUZZY FRUITS Allergy Unknown LIP Uncoded 05/09/19 07:37 SWELLING Procedures Performed Operation Date: 05/09/19 08:35 Actual Procedures p Transurethral Resection Prostate, - Kenn Silverio MD s Cystoscopy, with extraction of bladder stone - Kenn Silverio MD Hospital Course (1) BPH loc w urin obs/LUTS: 73yo M admitted for planned TURP and bladder stone extraction with Dr. Silverio. No complications intraop or postoperatively. Pacheco catheter removed, pt passed TOV. All questions answered, pt ready for discharge. Total Time Total Time Spent Total Time Spent (In Minutes): 15 Total Time Includes: Examination of the Patient, Discharge Planning, Medication Reconciliation and Communication With Other Providers Discharge Plan Discharge Items Patient Disposition: Home - Self-Care Reason For Visit: Hematuria, Benign Prostatic Hyperplasia with Urina Discharge Diagnosis: hematuria, BPH Condition on Discharge: Good Activity: Per Instructions section Bathing Comment: Okay to shower. Avoid tub baths/soaking/hot tubs. Sexual Activity: Wait until after follow-up appointment Exercise/Sports: Wait until after follow-up appointment Non-emergency contact: Urologist Call non-emergency contact if: your pain is not controlled and your pain is concerning for you Follow-up/Referrals: Kenn Silverio MD [Physician] - 05/30/19 3:30 pm PCP,NO [Primary Care Provider] - Diet: Regular Addtl Attending Provider Instructions: Please take all medications as prescribed and keep all follow-ups as scheduled. Please call our office at [phone] with any questions, concerns or need to reschedule appointments for any reason. We are happy to assist you. Tips for your recovery at home: Dont be alarmed by brownish or reddish blood or clots in your urine. This is a result of the procedure. This may occur off and on for weeks to months after the procedure but should continue to improve. Drink plenty of fluids during the day (enough to keep your urine very light colored). This will help keep a healthy flow of urine. Do not lift >25 lbs until your followup Avoid constipation. Please use a stool softener (Colace) for the first two weeks after your procedure Be sure to finish the antibiotics as prescribed. If you go home with a catheter, please wash tubing where it enters your body twice daily with mild soap (Dove or Dial). Once your catheter is removed, expect some blood in your urine and some burning when you urinate. You should have an appointment to have this removed, if you do not please call our office to arrange. When to call [facility] at [phone]: Your urine contains heavy blood clots You are constantly leaking urine Fever of 101F or higher, chills, nausea, or vomiting Your pain is not relieved with medication Pending Studies at Discharge: No Stand-Alone Forms: My [facility] Fitbit, Opioid Pain Management Medications and DC Order Prescriptions: New ciprofloxacin HCl 500 mg tablet 500 mg PO BID 3 Days Qty: 6 RF: 0 oxycodone-acetaminophen [Percocet] 5-325 mg tablet 1 tab PO Q8H PRN (Reason: pain) Qty: 10 RF: 0 Continued atorvastatin 10 mg Tablet 10 mg PO Q2D RF: 0 sertraline 100 mg Tablet 100 mg PO HS RF: 0 omeprazole 40 mg Capsule,Delayed Release(Dr/Ec) 40 mg PO QAM RF: 0 ranitidine HCl 150 mg Tablet 150 mg PO HS RF: 0 buspirone 10 mg Tablet 10 mg PO BID RF: 0 ascorbic acid (vitamin C) [Vitamin C] 500 mg Capsule, Extended Release 500 mg PO BID RF: 0 lisinopril 5 mg Tablet 5 mg PO DAILY RF: 0 vitamin E 400 unit Capsule 400 unit PO DAILY RF: 0 hawthorn 500 mg Capsule 500 mg PO BID RF: 0 Multivitamin 50 Plus Tablet 1 tab PO DAILY RF: 0 coenzyme Q10 [CoQ-10] 100 mg Capsule 300 mg PO DAILY RF: 0 Bystolic 5 mg Tablet 5 mg PO QAM RF: 0 omega [id number] oil [Fish Oil] 1,000 mg (120 mg-180 mg) Capsule 1 cap PO DAILY RF: 0 Probiotic 3 billion cell Capsule 3,000 mmu cells PO DAILY RF: 0 butterbur root extract 75 mg Capsule 75 mg PO DAILY RF: 0 Beet Root 1 dose PO BID RF: 0 Cranberry 1 dose PO BID RF: 0 Garlic 1 dose PO BID RF: 0 Prostate Health Supplement 2 dose PO DAILY RF: 0 Turmeric 1 dose PO BID RF: 0 Discharge Orders: Discharge Order (Routine); Ordered 05/10/19 Ordered By: Manjula Lewis Admission Data Admit Date/Time: 05/09/19 09:14 Attending Provider: Kenn Silverio Admit Provider: Kenn Silverio Primary Care Provider: PCP,NO Other Interventions: Discharge Summary Assessment (RN) Last Done: 05/10/19 12:20 DC Date/Time DO NOT enter until pt leaves facility: 05/10/19 12:48
[2019-05-17 08:01] LABS: Component 2 DNR
== END 2019-05-10 12:48 | disposition home or self-care (01) ==
LOC: ASU 07:11 → INTOOBSV 09:14 → 3W 09:14